=== PATIENT | male | born 1985 | race Two or more races ===

== ENCOUNTER 2018-04-28 00:22 | Emergency (ER) | payer SELFPAY ==
[~2018-04-28] VITALS: Ht 177.8 cm; Wt 94.0 kg
[2018-04-28] MEDS ORDERED: SODIUM CHLORIDE 0.9% 1,000 ML IV ONE (00:49)
[2018-04-28 01:14] LABS: BASOPHILS % 0.9 % (0.0-2.0); EOSINOPHILS % 8.7 % (0.0-5.0); HEMATOCRIT. 45.5 % (42.0-52.0); HEMOGLOBIN. 15.7 g/dL (14.0-18.0); LYMPHOCYTES % 42.2 % (20.0-50.0); MEAN CORPUSCULAR HEMOGLOBIN 29.7 pg (28.0-32.0); MEAN CORPUSCULAR VOLUME 86.1 fL (80.0-94.0); MEAN PLATELET VOLUME 10.5 fl (7.4-10.4); MONOCYTES % 4.8 % (2.0-8.0); NEUTROPHILS % 43.4 % (40.0-76.0); PLATELET 144 x1000/uL (130-400); RED BLOOD CELL COUNT 5.28 mill/uL (4.7-6.1); RED CELL DISTRIBUTION WIDTH 13.2 % (11.6-14.6)
[2018-04-28 01:18] LABS: CHLORIDE 106 mEq/L (98-107)
[2018-04-28 01:22] LABS: ETHANOL BLOOD < 10 mg/dL
[2018-04-28 01:29] LABS: CARBAMAZEPINE < 0.5 ug/mL (4-12)
[2018-04-28] MEDS ORDERED: CARBAMAZEPINE 200MG TABLET PO NR (04:00)
[2018-04-28] MEDS ORDERED: PHENYTOIN SODIUM EXTENDED 100MG CAPSULE PO ONE (04:28)
[2018-04-28 09:05] VITALS: BP 108/66
== END 2018-04-28 09:37 | disposition home or self-care (01) ==
LOC: ER 00:22
DX: G40.909 Epilepsy, unspecified, not intractable, without status epilepticus (principal); R89.2 Abnormal level of other drugs, medicaments and biological substances in specimens from other organs, systems and tissues
CPT/HCPCS: 36415; 70450; 80053; 80156; 80185; 85025; 96360; 96361; 99285; G0482; J7030; Z7610